=== PATIENT | male | born 1995 | race Caucasian/White ===

== ENCOUNTER → 2018-05-20 | Emergency (ER) | payer BC, OTHER ==
[~2018-05-20] MED LIST: IBUPROFEN 600 MG TAB PO ONE
--- NOTE | 2018-05-20 19:08 | EDPHY ---
H & P Time Seen by Provider: 05/20/18 17:52 HPI/ROS: This patient reports gradual onset left testicular ache over the past 4 days mild in intensity-3/10. He notes slight tenderness to the inferior pole of the testicle and denies any other associated symptoms. He does not recall having this in the past. He notes no exacerbating factors but has not tried any medications He drove here by private vehicle for evaluation. He denies any trauma to the testicle ROS: Constitutional: No fevers HEENT: No URI symptoms or sore throat GI: No associated abdominal pain. : No urethral discharge. He has noticed testicular swelling associated with this. No skin lesions the genital area. No flank pain no dysuria. No hematuria. Integumentary: No rash 7 point review of symptoms is performed and otherwise negative with exception of pertinent positives and negatives listed in HPI and ROS Past Medical/Surgical History: Otherwise healthy Social History: Patient is monogamous his relationship as a significant STD risk factors. He works as a rolle of beer at a [employer] Smoking Status: Former smoker Physical Exam: General Appearance: Alert, no distress. Eyes: Pupils equal and round no pallor or injection. ENT, Mouth: Mucous membranes moist. Respiratory: There are no retractions, lungs are clear to auscultation. Cardiovascular: Regular rate and rhythm. Gastrointestinal: Abdomen is soft and nontender, no masses, bowel sounds normal. Back: No CVA tenderness : He has normal testicular lie. Cremasteric reflexes intact. Appreciate no significant testicular swelling. Is no epididymal tenderness. Circumcised penis with no lesions or urethral discharge there is minimal tenderness at the inferior pole of the testicle at the 2 neck a Ashleigh knee but I do not appreciate any red dot sign on exam, ecchymosis, skin erythema or other abnormal findings. No evidence of inguinal hernia on exam Neurological: Alert and oriented Skin: Warm and dry, no rashes. Psychiatric: Mood and affect are normal DIFFERENTIAL DIAGNOSIS: After history and physical exam differential diagnosis was considered for torsion of the testicular appendiceal, epididymitis, orchitis , UTI, STD Constitutional: Initial Vital Signs Temperature (C) 37.0 C 05/20/18 17:53 Heart Rate 72 05/20/18 17:53 Respiratory Rate 18 05/20/18 17:53 Blood Pressure 148/89 H 05/20/18 17:53 O2 Sat (%) 96 05/20/18 17:53 O2 Delivery Mode Room Air Allergies/Adverse Reactions: No Known Allergies Allergy (Verified 05/20/18 17:53) Home Medications: Medication Instructions Recorded NK [No Known Home Meds] 05/20/18 MDM/Departure - MDM Imaging Results: Imaging Impressions Testicular Ultrasound 05/20/18 18:03 Impression: Normal study. Findings were discussed with JESICA CERVANTES MD at 18:39, on 05/20/2018. Imaging: Discussed imaging studies w/ call or contact centre team leader Radiologist Medications Given: Discontinued Medications Ibuprofen (Motrin) 600 mg PO EDNOW ONE Stop: 05/20/18 19:06 Last Admin: 05/20/18 19:27 Dose: 600 mg ED Course/Re-evaluation: Discussion: Patient with mild testicular pain of unclear etiology without any concerning findings on workup. We ruled out torsion or other significant abnormal is with normal testicular ultrasound. His urinalysis is normal. Chlamydia is pending. I counseled regarding this and he is given a dose of ibuprofen for comfort here with encouragement to continue ibuprofen for the next few days and follow up with Urology for any persistent pain beyond that time. He understands need to return emergency department should he developed significant worsening of symptoms despite the treatment plan. - Depart Disposition: Home, Routine, Self-Care Clinical Impression: Left testicular pain Condition: Good Instructions: Testicle Pain (ED) Additional Instructions: Diagnosis: Left testicular pain Your urinalysis and ultrasound are normal today. It is not yet clear why you' re having pain or testicle. Plan: Ibuprofen & Tylenol as needed for pain The symptoms not resolve over the next 3-7 days with ibuprofen Tylenol, then call Urology-number provided below to arrange follow-up appointment for further evaluation. Return emergency department if he develops severe pain despite ibuprofen Tylenol or other concerns. Referrals: Rg Yu MD [Medical Doctor] - As per Instructions
[2018-05-20 19:31] VITALS: BP 143/83
[2018-05-21 13:50] LABS: GC AMPLIFICATION GENPROBE NEGATIVE (NEGATIVE)
== END | disposition home or self-care (01) ==
LOC: CED 17:43
DX: N50.812 Left testicular pain (principal); Z87.891 Personal history of nicotine dependence
CPT/HCPCS: 76870-PO

== ENCOUNTER 2018-06-16 09:45 | Emergency (ER) | payer OTHER ==
[2018-06-16] MEDS ORDERED: KETOROLAC 15 MG/1 ML SDV IVP ONE ×2 (10:18→11:13)
--- NOTE | 2018-06-16 10:48 | EDPHY ---
H & P Stated Complaint: chest pain mid sternal started this AM, pain increased w/ deep breathing Time Seen by Provider: 06/16/18 09:55 HPI/ROS: This patient complains of chest pain he awakened with this morning in the sternal region that is worse when he bends forward come tear to sitting straight up. Feels like a combination of achy pain and pressure 6/10 intensity rest slightly worse with certain movements. He reports slight dyspnea associated with it that he feels is due to the increase in pain with movement more than a primary dyspnea. He has not tried any medications and notes no other exacerbating factors. While he has never had this pain before, it is reminiscent of a sternal injury he had playing soccer when he was head-butted in high school and sustained a sternal fracture. However, he denies any acute trauma. ROS: Constitutional: No fevers. No fatigue. HEENT: He describes nasal congestion onset yesterday. No other URI symptoms at this point. Pulmonary: No coughing. No primary dyspnea though again he feels that he does not want to take deep breaths because of increasing pain in the sternal area when he does so. Cardiovascular: No heart palpitations. No leg swelling or pain. The patient has never had any exertional chest pain or limitations in his exercise day due to dyspnea on exertion or other exercise related symptoms per his report. GI: No abdominal pain, nausea vomiting or diarrhea : No complaints Integumentary: No diaphoresis pallor or skin rash Neuro: No complaints Musculoskeletal: No trauma 10 point review of symptoms is performed and otherwise negative with exception of pertinent positives and negatives listed in HPI and ROS Source: Patient Exam Limitations: No limitations - Personal History Tetanus Vaccine Date: < 10 YEARS - Medical/Surgical History Hx Asthma: No Hx Chronic Respiratory Disease: No Hx Diabetes: No Hx Cardiac Disease: No Hx Renal Disease: No Hx Cirrhosis: No Hx Alcoholism: No Hx HIV/AIDS: No Hx Splenectomy or Spleen Trauma: No Other PMH: Brain surgery (skull decompression with C1 and C2) in high school, 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 Heruns regularly and has a baseline pulse in the 40s. - Physical Exam Exam: General Appearance: Alert, no distress. Eyes: Pupils equal and round no pallor or injection. ENT, Mouth: Mucous membranes moist. Respiratory: There are no retractions, lungs are clear to auscultation. Cardiovascular: Regular rate and rhythm. No murmur gallop or rub. No JVD. No peripheral edema. Chest wall: Patient has tenderness the sternal area feels similar to his pain. Gastrointestinal: Abdomen is soft and nontender, no masses, bowel sounds normal. Neurological: GCS 15 Skin: Warm and dry, no rashes. Musculoskeletal: Neck is supple nontender. Extremities are symmetrical, full range of motion. Psychiatric: Mood and affect normal DIFFERENTIAL DIAGNOSIS: After history and physical exam differential diagnosis was considered for chest wall pain, costochondritis, muscle strain, pericarditis , myocarditis, pleurisy, PE, congenital cardiac disease Constitutional: Initial Vital Signs Temperature (C) 36.5 C 06/16/18 09:49 Heart Rate 70 06/16/18 09:49 Respiratory Rate 18 06/16/18 09:49 Blood Pressure 133/95 H 06/16/18 09:49 O2 Sat (%) 98 06/16/18 09:49 O2 Delivery Mode Room Air O2 (L/minute) 2 Allergies/Adverse Reactions: No Known Allergies Allergy (Verified 06/16/18 09:49) Home Medications: Medication Instructions Recorded Lidocaine [Lidoderm] 1 each TP DAILY #15 adh..patch 06/16/18 Medical Decision Making - Diagnostics EKG Interpretation: 12 lead EKG performed shortly after arrival at 955 revealing sinus bradycardia. Intervals: P R of 157, QRS of 87, QTC of 384 [place]: P of 51, QRS of -10, T of 0 ST segments are notable for T-wave inversions in leads 2 3 and AVF Patient has J-point elevation in the precordial leads Overall assessment sinus bradycardia with early repolarization pattern and borderline inferior T-wave abnormalities Imaging Results: Imaging Impressions Chest X-Ray 06/16/18 10:18 IMPRESSION: Normal chest x-ray. Imaging: I viewed and interpreted images myself ED Course/Re-evaluation: IV Toradol, PO tylenol and lidoderm patch with partial relief. Discussion: Patient presents with chest pain that seems clinically most consistent with chest wall source given reproducibility with palpation of his chest. 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 However he also has inferior T-wave inversions. He reports a family history of the same in his mother and brother without significant underlying cardiac anomaly. However given this finding I did discuss the case with Dr. Downing, blockers skiver who recommends an echocardiogram with follow up with Dr. Downing in the office sometime within the next week. I ordered an echocardiogram for tomorrow and provided follow-up information with Dr. Downing. Patient's troponin and D-dimer normal. His electrolytes and CBC are also normal. He does report history of nasal congestion and possible he has an element of costochondritis contributing to his apparent chest wall pain. I do not think this patient is having an acute cardiopulmonary cause of his chest pain today. I counseled regarding this in some detail. He understands however the need to return should he develop any significant worsening of symptoms despite treatment plan of Lidoderm , ibuprofen Tylenol. - Data Points Laboratory Results: 06/16/18 06/16/18 10:35 10:33 POC Sodium 140 mEq/L mEq/L (135-145) POC Potassium 3.9 mEq/L mEq/L (3.3-5.0) POC Chloride 105.0 mEq/L mEq/L (97-110) POC Total CO2 23 mEq/L mEq/L (22-31) POC BUN 9 mg/dL mg/dL (7-23) POC Creatinine 0.8 mg/dL mg/dL (0.7-1.3) POC Glucose 104 mg/dL H mg/dL (70-100) POC Calcium 9.6 mg/dL mg/dL (8.5-10.4) POC Troponin I 0.00 ng/mL ng/mL (0.00-0.08) The patient's D-dimer is normal. His CBC is normal Medications Given: Discontinued Medications Acetaminophen (Tylenol) 1,000 mg PO EDNOW ONE Stop: 06/16/18 11:09 Last Admin: 06/16/18 11:32 Dose: 1,000 mg Ketorolac Tromethamine (Toradol) 15 mg IVP EDNOW ONE Stop: 06/16/18 10:19 Last Admin: 06/16/18 10:46 Dose: 15 mg Ketorolac Tromethamine (Toradol) 15 mg IVP EDNOW ONE Stop: 06/16/18 11:14 Last Admin: 06/16/18 11:32 Dose: 15 mg Miscellaneous Medication (Icy Hot Lidocaine/Menthol 4%/1% Patch) 1 patch TD EDNOW ONE Stop: 06/16/18 11:58 Last Admin: 06/16/18 12:10 Dose: 1 patch Point of Care Test Results: CBC CBC Collection Date 06/16/18 CBC Collection Time 10:28 WBC 5.1 RBC 4.6 HGB 15.4 HCT 43.2 PLT 154 Neut # 2.9 Neut 57.8 LYMPH # 2.0 LYMPH 38.6 Other WBC # 0.2 Other WBC 3.6 MCV 93.9 Chemistry 06/16/18 06/16/18 10:35 10:33 POC Sodium 140 mEq/L mEq/L (135-145) POC Potassium 3.9 mEq/L mEq/L (3.3-5.0) POC Chloride 105.0 mEq/L mEq/L (97-110) POC Total CO2 23 mEq/L mEq/L (22-31) POC BUN 9 mg/dL mg/dL (7-23) POC Creatinine 0.8 mg/dL mg/dL (0.7-1.3) POC Glucose 104 mg/dL H mg/dL (70-100) POC Calcium 9.6 mg/dL mg/dL (8.5-10.4) POC Troponin I 0.00 ng/mL ng/mL (0.00-0.08) Basic Metabolic Panel BMP Collection Date 06/16/2018 BMP Collection Time 10:28 D-Dimer D-Dimer Collection Date 06/16/18 D-Dimer Collection Time 10:28 D-Dimer (ng/ml) 100 Departure - Departure Disposition: Home, Routine, Self-Care Clinical Impression: Chest pain Qualifiers: Chest pain type: precordial pain Qualified Code(s): R07.2 - Precordial pain Condition: Good Instructions: Lidocaine Patch (On the skin), Chest Wall Pain (ED) Additional Instructions: Diagnosis: Chest pain Your findings are most consistent with chest wall source of pain. However, on your EKG there is a very into that warrants a follow-up echocardiogram tomorrow. Plan: Call to schedule this echocardiogram for tomorrow and also call Dr. Downing-blockers skiver to schedule a follow-up appointment to review your echocardiogram results. Take ibuprofen Tylenol and lidocaine patch for pain control as needed Limit activity until you of followed up with Cardiology. Return emergency department for any significant worsening despite treatment plan Referrals: NONE *PRIMARY CARE P,. [Primary Care Provider] - As per Instructions Lucius Downing MD [Medical Doctor] - As per Instructions Prescriptions: Lidocaine [Lidoderm] 1 each TP DAILY #15 adh..patch
[2018-06-16] MEDS ORDERED: ACETAMINOPHEN 500 MG TAB PO ONE (11:08)
[2018-06-16] MEDS ORDERED: LIDOCAINE 4%/MENTHOL 1% PATCH TD ONE (11:57)
[2018-06-16 12:14] VITALS: BP 123/63
[2018-06-16] MEDS ORDERED: PATCH REMOVAL 1 EA PATCH TD SCH (21:00)
== END 2018-06-16 12:12 | disposition home or self-care (01) ==
LOC: CED 09:45
DX: R07.89 Other chest pain (principal); R00.1 Bradycardia, unspecified; Z87.820 Personal history of traumatic brain injury
CPT/HCPCS: 71046-PO; 80048-PO; 84484-PO; 96374; J1885